=== PATIENT | male | born 1980 | race African-American/Black ===

== ENCOUNTER 2018-12-24 09:18 | Emergency (ER) | payer OTHER ==
[~2018-12-24] VITALS: Ht 167.6 cm; Wt 97.5 kg
--- NOTE | 2018-12-24 09:21 | NUR ---
ED Nurse Note: PT BROUGHT IN BY [id number] FROM HOME. AOX4. PT C/O RIGHT LOWER QUADRANT ABDOMINAL PAIN, 10/30, RADIATING TO RIGHT LOWER BACK X THIS MORNING AROUND 0700. PT ALSO STATES HE HAD ABOUT 3 EPISODES OF VOMITING THIS AM. PT DENIES DIARRHEA. LAST BM X LAST NIGHT WHICH PT STATES WAS FORMED. ACTIVE BOWEL SOUNDS IN ALL QUADRANTS. ABDOMEN NONDISTENDED BUT TENDER TO PALPATION AT RIGHT LOWER QUADRANT. PT DENIES DIFFICULTY URINATING, PAINFUL URINATION OR CHANGES IN URINARY FREQUENCY.
[2018-12-24 09:23] VITALS: BP 117/81
--- NOTE | 2018-12-24 09:38 | Emergency Room Report ---
History of Present Illness General Chief Complaint: Abdominal Pain Source: Patient Present Illness HPI Patient presents with complaints of right mid abdominal pain Reports that yesterday he worked out after eating which is not his usual regimen Soon after that began having the pain in the right upper and mid abdominal area This morning the patient awoke with more significant pain sharp pulsating Mid abdomen some lower abdomen and back area Had several episodes of vomiting Denies any diarrhea patient did take laxative and again vomited denies any fevers or chills denies any dysuria frequency Denies any recent travel or trauma Allergies: Coded Allergies: No Known Allergies (Unverified , 12/24/18) Patient History Past Medical History: see triage record Reviewed Nursing Documentation: PMH: Agreed; PSxH: Agreed Nursing Documentation-PMH Past Medical History: No History, Except For Hx Hypertension: Yes Review of Systems All Other Systems: negative except mentioned in HPI Physical Exam Vital Signs Date Time Temp Pulse Resp B/P (MAP) Pulse Ox O2 Delivery O2 Flow Rate FiO2 12/24/18 09:09 98.2 80 18 120/80 (93) 99 Room Air Sp02 EP Interpretation: reviewed, normal General Appearance: mild distress - Appears uncomfortable Head: normocephalic, atraumatic Eyes: bilateral eye PERRL, bilateral eye EOMI ENT: hearing grossly normal, normal pharynx, TMs + canals normal, uvula midline Neck: full range of motion, supple, no meningismus, no bony tend Respiratory: lungs clear, normal breath sounds, no rhonchi, no respiratory distress, no retraction, no accessory muscle use Cardiovascular #1: normal peripheral pulses, regular rate, rhythm, no edema, no gallop, no JVD, no murmur Gastrointestinal: normal bowel sounds, non tender - Palpation however patient points to right mid abdomen subjectively, soft, no mass, no organomegaly, non- distended, no guarding, no hernia, no pulsatile mass, no rebound Genitourinary: no CVA tenderness Musculoskeletal: normal inspection Neurologic: oriented x3, responsive, investigative shopper III-XII nml as tested, motor strength/ tone normal, sensory intact Psychiatric: mood/affect normal Skin: no rash Lymphatic: normal inspection, no adenopathy Medical Decision Making Diagnostic Impression: Primary Impression: Renal colic ER Course Given the patient's history and presentation multiple differentials and consideration including but not limited to cholecystitis, renal colic, appendicitis Patient's CT imaging does reveal likely recently passed 2 mm stone on the right side This does correlate with the patient's description of the pain and location On repeat evaluation patient feels significantly improved Blood work remains appropriate Patient continues to do well and at this time stable for close outpatient follow -up Labs Test 12/24/18 09:23 White Blood Count 8.6 K/UL (4.8-10.8) Red Blood Count 4.99 M/UL (4.70-6.10) Hemoglobin 15.0 G/DL (14.2-18.0) Hematocrit 45.4 % (42.0-52.0) Mean Corpuscular Volume 91 FL (80-99) Mean Corpuscular Hemoglobin 30.0 PG (27.0-31.0) Mean Corpuscular Hemoglobin Concent 32.9 G/DL (32.0-36.0) Red Cell Distribution Width 12.0 % (11.6-14.8) Platelet Count 176 K/UL (150-450) Mean Platelet Volume 6.7 FL (6.5-10.1) Neutrophils (%) (Auto) 83.7 % (45.0-75.0) Lymphocytes (%) (Auto) 8.6 % (20.0-45.0) Monocytes (%) (Auto) 6.1 % (1.0-10.0) Eosinophils (%) (Auto) 1.1 % (0.0-3.0) Basophils (%) (Auto) 0.5 % (0.0-2.0) Sodium Level 146 MMOL/L (136-145) Potassium Level 3.7 MMOL/L (3.5-5.1) Chloride Level 108 MMOL/L (98-107) Carbon Dioxide Level 26 MMOL/L (21-32) Anion Gap 12 mmol/L (5-15) Blood Urea Nitrogen 22 mg/dL (7-18) Creatinine 1.3 MG/DL (0.55-1.30) Estimat Glomerular Filtration Rate > 60 mL/min (>60) Glucose Level 115 MG/DL (74-106) Calcium Level 9.3 MG/DL (8.5-10.1) Total Bilirubin 0.7 MG/DL (0.2-1.0) Aspartate Amino Transf (AST/SGOT) 21 U/L (15-37) Alanine Aminotransferase (ALT/SGPT) 29 U/L (12-78) Alkaline Phosphatase 69 U/L (46-116) Total Protein 7.6 G/DL (6.4-8.2) Albumin 4.0 G/DL (3.4-5.0) Globulin 3.6 g/dL Albumin/Globulin Ratio 1.1 (1.0-2.7) Lipase 91 U/L (73-393) CT/MRI/US Diagnostic Results CT/MRI/US Diagnostic Results : Impression CT abdomen pelvisImpression: 2 mm calcification within the bladder lumen. Suspect that this is a recently passed calculus, probably from the right kidney as there is mild ectasia of the right ureter and minimal right perinephric fat stranding. Nonobstructive 3 mm right upper pole renal calculus Limited assessment of the GI tract, due to lack of enteric contrast administration. Incidental findings of posterior dependent pulmonary atelectatic changes, small fat-containing umbilical hernia Last Vital Signs Date Time Temp Pulse Resp B/P (MAP) Pulse Ox O2 Delivery O2 Flow Rate FiO2 12/24/18 09:23 74 16 Room Air 12/24/18 09:23 98.4 117/81 98 Status: improved Disposition: HOME, SELF-CARE Condition: Improved Scripts Ibuprofen* (MOTRIN*) 600 Mg Tablet 600 MG ORAL Q8H PRN for For Pain, #20 TAB 0 Refills Prov: Jake Watson DO 12/24/18 Tamsulosin HCl (Flomax) 0.4 Mg Cap.er.24h 0.4 MG ORAL DAILY for 7 Days, CAP Prov: Jake Watson DO 12/24/18 Additional Instructions: Patient is provided with the discharge instructions notified to follow up with primary doctor in the next 2-3 days otherwise return to the er with any worsening symptoms. Please note that this report is being documented using [employer] technology. This can lead to erroneous entry secondary to incorrect interpretation by the dictating instrument. Jake Watson DO Dec 24, 2018 09:38
[2018-12-24] MEDS ORDERED: Metoclopramide 10mg/2ml Inj IVP ONE (09:45)
[2018-12-24] MEDS ORDERED: Ketorolac 30mg Inj IV ONE (09:45)
[2018-12-24] MEDS ORDERED: DiphenhydrAMINE 50mg/ml Inj IVP ONE (09:45)
[2018-12-24 09:48] LABS: ANION GAP 12 mmol/L (5-15); BLOOD UREA NITROGEN 22 mg/dL (7-18); CALCIUM 9.3 MG/DL (8.5-10.1); CARBON DIOXIDE 26 MMOL/L (21-32); CHLORIDE 108 MMOL/L (98-107); CREATININE 1.3 MG/DL (0.55-1.30); POTASSIUM 3.7 MMOL/L (3.5-5.1); SODIUM 146 MMOL/L (136-145)
[2018-12-24 09:50] LABS: ALANINE AMINOTRANSFERASE 29 U/L (12-78); ALBUMIN/GLOBULIN RATIO 1.1 (1.0-2.7); ALKALINE PHOSPHATASE 69 U/L (46-116); ASPARTATE AMINO TRANSFERASE 21 U/L (15-37); BILIRUBIN,TOTAL 0.7 MG/DL (0.2-1.0)
[2018-12-24 09:52] LABS: BASOPHILS % (AUTO) 0.5 % (0.0-2.0); EOSINOPHILS % (AUTO) 1.1 % (0.0-3.0); HEMATOCRIT 45.4 % (42.0-52.0); LYMPHOCYTES % (AUTO) 8.6 % (20.0-45.0); MEAN CORPUSCULAR VOLUME 91 FL (80-99); MONOCYTES % (AUTO) 6.1 % (1.0-10.0); NEUTROPHILS % (AUTO) 83.7 % (45.0-75.0); PLATELET COUNT 176 K/UL (150-450); RED BLOOD COUNT 4.99 M/UL (4.70-6.10); WHITE BLOOD COUNT 8.6 K/UL (4.8-10.8)
--- NOTE | 2018-12-24 10:00 | NUR ---
ED Nurse Note: PT TO CT VIA LIN.
--- NOTE | 2018-12-24 10:14 | NUR ---
ED Nurse Note: PT BACK FROM CT VIA LIN.
--- NOTE | 2018-12-24 10:15 | NUR ---
ED Nurse Note: PT REMINDED URINE SPECIMEN IS NEEDED FOR UA. URINAL REMAINS AT BEDSIDE.
--- NOTE | 2018-12-24 10:38 | Diagnostic Imaging Report ---
Indication: Right mid abdominal pain Technique: Spiral acquisitions obtained through the abdomen and pelvis. No oral contrast utilized, per emergency room physician request No IV contrast utilized, per referring physician request.. Multiplanar reconstructions were generated. Total dose length product 1030.8 mGycm. CTDIvol(s) 19.07 mGy. Dose reduction achieved using automated exposure control Comparison: None Findings: There is a 3 mm calculus in a right upper pole calyx. No definite hydronephrosis. There is equivocal minimal ectasia of the right ureter. A 2 mm calcification projects in the bladder lumen dependently just lateral to the right ureteral orifice. There is minimal perinephric fat stranding on the right. No left renal or ureteral calculi, hydronephrosis, or hydroureter demonstrated. The bladder is otherwise unremarkable. The prostate and seminal vesicles are unremarkable. Lack of IV contrast limits assessment of the renal parenchyma. No gross renal parenchymal mass or cyst demonstrated. Lack of IV contrast limits assessment of the other solid organs. The liver, gallbladder, bile ducts, pancreas, spleen, adrenals are all unremarkable. No retroperitoneal or mesenteric mass or adenopathy. No pelvic mass or adenopathy. Lack of enteric contrast limits assessment of the GI tract. The appendix is normal. There is no evidence of diverticulosis or diverticulitis. There is a small umbilical hernia which contains only fat. No small bowel distention. No free or loculated intraperitoneal gas or fluid is evident. The included lung bases demonstrate posterior dependent atelectatic changes. The bones are unremarkable. Impression: 2 mm calcification within the bladder lumen. Suspect that this is a recently passed calculus, probably from the right kidney as there is mild ectasia of the right ureter and minimal right perinephric fat stranding. Nonobstructive 3 mm right upper pole renal calculus Limited assessment of the GI tract, due to lack of enteric contrast administration. Incidental findings of posterior dependent pulmonary atelectatic changes, small fat-containing umbilical hernia The CT scanner at [facility] is accredited by the [employer] and the scans are performed using protocols designed to limit radiation exposure to as low as reasonably achievable to attain images of sufficient resolution adequate for diagnostic evaluation.
[2018-12-24] MEDS ORDERED: IBUPROFEN600 MG ORAL (11:13)
[2018-12-24] MEDS ORDERED: FLOMAX0.4 MG ORAL (11:13)
--- NOTE | 2018-12-24 11:22 | NUR ---
ED Nurse Note: PT LAYING PEACEFULLY IN BED IN NAD. AOX4. PRESCRIPTIONS AND DISCHARGE PAPERWORK EXPLAINED TO PT. PT VERBALIZES UNDERSTANDING AND ALL QUESTIONS ANSWERED. PRESCRIPTIONS AND DISCHARGE PAPERWORK GIVEN TO PT, IV AND ID WRISTBAND REMOVED. PT WALKED OUT OF ER WITH STEADY GAIT AND ALL BELONGINGS ACCOMPANIED BY SIGNICANT OTHER.
[2018-12-24 11:23] VITALS: BP 118/76
[2018-12-24 11:43] LABS: APPEARANCE,URINE CLEAR; BILIRUBIN, URINE NEGATIVE (NEGATIVE); COLOR,URINE PALE YELLOW; GLUCOSE, URINE (UA) NEGATIVE (NEGATIVE); KETONES,URINE 2+ (NEGATIVE); LEUKOCYTE ESTERASE ,URINE NEGATIVE (NEGATIVE); NITRITE,URINE NEGATIVE (NEGATIVE); PH,URINE 7 (4.5-8.0); PROTEIN,URINE NEGATIVE (NEGATIVE); UROBILINOGEN,URINE NORMAL MG/DL (0.0-1.0)
== END 2018-12-24 11:24 | disposition home or self-care (01) ==
LOC: EDBD 09:18 → EMR 10:20
DX: N20.0 Calculus of kidney (principal); K42.9 Umbilical hernia without obstruction or gangrene; I10 Essential (primary) hypertension
CPT/HCPCS: 36415; 74176; 80053; 81003; 83690; 85025; 96361; 96374; 96375; 99284; J1200; J1885; J2765